=== PATIENT | female | born 1980 | race Caucasian/White ===

== ENCOUNTER 2020-03-29 20:47 | Emergency (ER) | payer OTHER, SELFPAY ==
[2020-03-29 20:48] VITALS: BP 138/92; PULSE 88; RESP 18; TEMP 35.9; O2SAT 100; BMI 30.9
--- NOTE | 2020-03-29 20:54 | ED.RN ---
RN CALLED FOR EKG, NO OLD EKGS IN MUSE
--- NOTE | 2020-03-29 21:10 | EKG12_ITS ---
Test Reason : CHEST PAIN Blood Pressure : / mmHG Vent. Rate : 093 BPM Atrial Rate : 093 BPM P-R Int : 140 ms QRS Dur : 084 ms QT Int : 348 ms P-R-T Axes : 050 090 018 degrees QTc Int : 432 ms Normal sinus rhythm Rightward axis Borderline ECG Confirmed by KIERAN ATWOOD, ARRON ([id number]), metropolitan editor DEION LARSEN ([id number]) on 04/07/2020 10:04:02 AM Referred By: DAGMAR Confirmed By:RACHEL ALCARAZ MD
--- NOTE | 2020-03-29 21:10 | ED.VIS.GEN ---
History of Present Illness Chief Complaint: Chest Pain Informant: Patient Narrative: -year-old female presents for the evaluation of chest tightness. Patient states that it may be anxiety because she works around people that have had Covid. She notes that she has a bit of a runny nose and a slight cough. There is no chest pain or back pain. No sensation of dyspnea, diarrhea, rashes, myalgias, fever, headache, or sore throat. Past Medical History - Allergies and Home Meds Allergies/Adverse Reactions: Allergies Sulfa (Sulfonamide Antibiotics) Adverse Reaction (Verified 03/29/20 20:50) PT UNSURE OF REACTION Primary Care Physician: NOT,DEFINED [NON-STAFF] - Past Medical History: - - Anxiety Surgical History: noncontributory Smoking Status: Never smoker Drugs: None Review of Systems General: Denies: Chills, Fever, Sweats Eyes: Denies: Visual changes - bilaterally, Diplopia ENT: Reports: Rhinorrhea. Denies: Sore throat Cardiovascular: Denies: Chest pain, Palpitations Respiratory: Reports: Cough, - - Chest tightness. Denies: Dyspnea, Dyspnea on exertion Gastrointestinal: Denies: Abdominal pain, Nausea, Vomiting, Diarrhea, Melena, Hematochezia Genitourinary: Denies: Dysuria, Hematuria, Frequency Musculoskeletal: Denies: Back pain, Extremity Pain Skin: Denies: Rash, Wounds Neurological: Denies: Headache, Weakness, Numbness Physical Exam Vital Signs/Narrative: Vital Signs Temp Pulse Resp BP Pulse Ox 03/29/20 20:48 96.7 F L 88 18 138/92 H 100 Inital Vital Signs reviewed: Yes General: Well nourished, Well developed, No Acute Distress Head: Normocephalic, Atraumatic Eyes: Perrl, EOMI ENT: Moist mucous membranes, No rhinorrhea Neck: Supple, Nontender Cardiovascular: Regular rate, Regular rhythm, No murmurs Respiratory: No distress, CTA bilaterally, Chest nontender Abdomen: Soft, Nontender, Nondistended, Normal bowel sounds Back: Nontender, Normal Inspection Extremities: Nontender, No edema Skin: Normal color, No rash Neurological: Alert, Oriented x3, Cranial nerves II-XII grossly intact, Normal Strength, Normal Sensation Psychological: - - Patient has an anxious affect Diagnostic/Tx/Re-eval Clinical Impression(s) from Imaging Studies Chest X-Ray 03/29/20 21:20 IMPRESSION: Normal. at 2138 Reported and signed by: Sanchez Mccain MD Electronically Signed: Sanchez Mccain MD at 21:37 EST Tel , Service support , - EKG Initial EKG Interpretation: Sinus Rhythm - EKG demonstrates a normal sinus rhythm at a rate of 93 without concerning features of ACS or ectopy. - Medical Decision Making COVID-19 test was positive. Her vital signs are normal. She is satting fine. She speaks in full sentences. Her chest x-ray is clear. Patient will be discharged home with continued supportive care. She is expected to quarantine. ED Disposition - Plan for ED Patient: Disposition: Home or Assisted Living Diagnosis: COVID-19, Dyspnea Instructions: Coronavirus Disease 2019 (COVID-19): Overview Referrals: NOT,DEFINED [NON-STAFF] - As Needed
--- NOTE | 2020-03-29 21:20 | RAD_ITS ---
HISTORY: CHEST TIGHTNESS EXAM: XR Chest 1 View: COMPARISON: None FINDINGS: # of images incl. paperwork: 1 Lungs are clear. Heart is not enlarged. No acute osseous pathology perceived. Pulmonary vascularity is distinct. No effusions. RAD/Chest 1 View (Portable) IMPRESSION: Normal. at 2138 Reported and signed by: Sanchez Mccain MD Electronically Signed: Sanchez Mccain MD at 21:37 EST Tel , Service support ,
== END 2020-03-29 22:49 | disposition home or self-care (01) ==
PROVIDERS: Emergency Provider Emergency Medicine
DX: U07.1 COVID-19 (principal); R06.00 Dyspnea, unspecified; R05 Cough; R07.89 Other chest pain; J34.89 Other specified disorders of nose and nasal sinuses; F41.9 Anxiety disorder, unspecified
CPT/HCPCS: 71045; 87426; 93005; 99283